=== PATIENT | female | born 1990 | race African-American/Black ===

== ENCOUNTER 2016-10-02 11:23 | Emergency (ER) | payer OTHER | END 2016-10-02 19:49 | disposition home or self-care (01) | LOC: ER 11:23 | DX: N34.2 Other urethritis (principal); Z88.6 Allergy status to analgesic agent ==

== ENCOUNTER 2016-11-06 14:26 | Emergency (ER) | payer OTHER ==
[~2016-11-06] VITALS: Ht 175.3 cm; Wt 98.4 kg
[~2016-11-06 14:26] MED LIST: DOXYCYCLINE 10100 MG PO; NORCO 5-325 TA1 EACH PO; ZOFRAN ODT4 MG PO
[2016-11-06 14:50] LABS: URINE BILIRUBIN NEGATIVE (Negative); URINE BLOOD NEGATIVE (Negative); URINE COLOR YELLOW; URINE GLUCOSE-RANDOM* NEGATIVE (Negative); URINE KETONES NEGATIVE (Negative); URINE NITRITE NEGATIVE (Negative); URINE PROTEIN (DIPSTICK) NEGATIVE (Negative); URINE UROBILINOGEN 0.2 E.U./dl (0.2-1.0)
[2016-11-06 15:08] LABS: CASTS None Seen /LPF (None Seen); CRYSTALS None Seen /LPF (None Seen); SQUAMOUS 4-10 Moderate /LPF (0-3); URINE WBC 6-15 Few /HPF (0-5)
[2016-11-06 15:09] LABS: URINE RBC None Seen /HPF (0-2)
[2016-11-06 15:14] LABS: BACTERIA 1-9 Few /HPF (None Seen)
[2016-11-06] MEDS ORDERED: FLAGYL500 MG PO (15:39)
[2016-11-06 16:17] VITALS: BP 137/76
[2016-11-08 18:07] LABS: CHLAMYDIA TRACHOMATIS-PCR Negative (Negative); NEISSERIA GONORRHEA-PCR Negative (Negative)
== END 2016-11-06 16:18 | disposition home or self-care (01) ==
LOC: ER 14:26
PROVIDERS: Physician Assistant
DX: A59.9 Trichomoniasis, unspecified (principal); R30.0 Dysuria; N89.8 Other specified noninflammatory disorders of vagina; Z88.6 Allergy status to analgesic agent

== ENCOUNTER 2016-12-03 16:16 | Emergency (ER) | payer OTHER ==
[~2016-12-03] VITALS: Ht 175.3 cm; Wt 98.4 kg
--- NOTE | ~2016-12-03 | EKG ---
[address] [address] ELECTROCARDIOGRAM REPORT Name: MAYKATE Room #: DEP VIVIEN Tirado#: [id number] Admission: 12/03/16 Attend Phys: Discharge: 12/03/16 Date of : [birth year] Report #: [id number] THIS REPORT FOR: //name// [facility] ED Test Date: 2016-12-03 Test Time: 16:21:13 Pat Name: KATE OLVERA Department: Room: Gender: F [employer] Attendant: KKODJOVI : 1990 Requested By: Sendy Caballero Order Number: [id number] MD: Austin Boyd Measurements Intervals [place] Rate: 74 P: 59 AL: 162 QRS: 76 QRSD: 94 T: 22 QT: 369 QTc: 410 Interpretive Statements Sinus rhythm Atrial premature complex No previous ECG available for comparison Electronically Signed On 12-04-2016 19:38:33 CDT by Austin Boyd [email or web address] <ELECTRONICALLY SIGNED> By: Austin Boyd MD 12/04/16 [id number] 162 1621 Austin Boyd MD /VICTORIA
[~2016-12-03 16:16] MED LIST changes: +BACTRIM DS TAB1 EACH PO; +FLAGYL500 MG PO; +NOHOMEMEDICATIONS
[2016-12-03 16:52] LABS: ABSOLUTE NEUTROPHILS 5.9 thou/uL (1.4-8.2); BASOPHILS 0.8 % (0.0-2.0); EOSINOPHILS 1.3 % (0.0-3.0); HEMATOCRIT 38.5 % (37.0-47.0); HEMOGLOBIN 12.6 gm/dL (12.0-15.0); LYMPHOCYTES 28.3 % (24.0-44.0); MANUAL DIFF NO; MCH 27.7 pg (26.0-34.0); MCHC 32.7 g/dL (28.0-37.0); MCV 84.9 fL (80.0-100.0); MONOCYTES 8.6 % (1.0-8.0); PLATELET COUNT 285 thou/uL (150-400); RBC 4.54 mil/uL (4.20-5.00); RDW 14.5 % (10.5-14.5); WBC 9.7 thou/uL (4.0-11.0)
[2016-12-03 17:00] LABS: ANION GAP 2 mmol/L (7-16); BUN 16 mg/dL (7-18); CALCIUM 9.1 mg/dL (8.5-10.1); CHLORIDE 103 mmol/L (98-107); CO2 30 mmol/L (21-32); CREATININE 1.1 mg/dL (0.6-1.0); GLUCOSE 101 mg/dL (74-106); SODIUM 135 mmol/L (136-145)
[2016-12-03 17:07] LABS: PROTIME 9.9 Seconds (9.3-11.4)
[2016-12-03 17:09] LABS: ALBUMIN 3.4 g/dL (3.4-5.0); ALKALINE PHOSPHATASE 71 U/L (46-116); SGOT 22 U/L (15-37); SGPT 31 U/L (30-65); TOTAL BILIRUBIN 0.1 mg/dL (<0.1-1.0); TOTAL PROTEIN 7.3 g/dL (6.4-8.2); TROPONIN-I < 0.04 ng/mL (<0.06)
[2016-12-03 17:20] LABS: URINE BILIRUBIN NEGATIVE (Negative); URINE BLOOD NEGATIVE (Negative); URINE COLOR YELLOW; URINE GLUCOSE-RANDOM* NEGATIVE (Negative); URINE KETONES NEGATIVE (Negative); URINE NITRITE NEGATIVE (Negative); URINE PROTEIN (DIPSTICK) NEGATIVE (Negative); URINE SPECIFIC GRAVITY >= 1.030 (1.003-1.035); URINE UROBILINOGEN 0.2 E.U./dl (0.2-1.0)
[2016-12-03] MEDS ORDERED: CYCLOBENZAPRINE5 MG PO (18:42)
[2016-12-03 18:49] VITALS: BP 130/87
[2016-12-05 14:09] LABS: CHLAMYDIA TRACHOMATIS-PCR Negative (Negative); NEISSERIA GONORRHEA-PCR Negative (Negative)
== END 2016-12-03 18:49 | disposition home or self-care (01) ==
LOC: ER 16:16
PROVIDERS: Physician Assistant
DX: R07.89 Other chest pain (principal); D68.59 Other primary thrombophilia; Z20.2 Contact with and (suspected) exposure to infections with a predominantly sexual mode of transmission; Z88.6 Allergy status to analgesic agent

== ENCOUNTER 2017-02-27 14:57 | Emergency (ER) | payer OTHER ==
[~2017-02-27] VITALS: Ht 175.3 cm; Wt 97.1 kg
[~2017-02-27 14:57] MED LIST changes: +CYCLOBENZAPRINE5 MG PO
[2017-02-27 15:11] LABS: URINE BILIRUBIN NEGATIVE (Negative); URINE BLOOD NEGATIVE (Negative); URINE CLARITY SL CLOUDY; URINE COLOR YELLOW; URINE GLUCOSE-RANDOM* NEGATIVE (Negative); URINE KETONES NEGATIVE (Negative); URINE LEUKOCYTES NEGATIVE (Negative); URINE NITRITE NEGATIVE (Negative); URINE PROTEIN (DIPSTICK) NEGATIVE (Negative); URINE SPECIFIC GRAVITY >= 1.030 (1.005-1.035); URINE UROBILINOGEN 0.2 E.U./dl (0.2-1.0)
[2017-05-30] MEDS ORDERED: ONDANSETRON HCL4 M2 PO (20:42)
[2017-05-30] MEDS ORDERED: REGLAN 10 MG TA10 MG PO (20:48)
== END 2017-02-27 15:52 | disposition home or self-care (01) ==
LOC: ER 14:57
PROVIDERS: Emergency Medicine
DX: Z20.2 Contact with and (suspected) exposure to infections with a predominantly sexual mode of transmission (principal); F10.99 Alcohol use, unspecified with unspecified alcohol-induced disorder; Z88.6 Allergy status to analgesic agent

== ENCOUNTER 2017-03-20 17:11 | Emergency (ER) | payer OTHER ==
[~2017-03-20] VITALS: Ht 170.2 cm; Wt 90.7 kg
[2017-05-30] MEDS ORDERED: ONDANSETRON HCL4 M2 PO (20:42)
[2017-05-30] MEDS ORDERED: REGLAN 10 MG TA10 MG PO (20:48)
== END 2017-03-20 18:13 | disposition home or self-care (01) ==
LOC: ER 17:11
DX: J06.9 Acute upper respiratory infection, unspecified (principal); J34.89 Other specified disorders of nose and nasal sinuses; Z88.6 Allergy status to analgesic agent

== ENCOUNTER 2017-08-27 20:15 | Emergency (ER) | payer OTHER ==
[~2017-08-27] VITALS: Ht 182.9 cm; Wt 97.1 kg
[~2017-08-27 20:15] MED LIST changes: +ONDANSETRON HCL4 M2 PO; +REGLAN 10 MG TA10 MG PO
[2017-08-27 20:22] VITALS: BP 121/76
[2017-08-27] MEDS ORDERED: TRAMADOL 50 MG50 MG PO (20:33)
== END 2017-08-27 20:51 | disposition home or self-care (01) ==
LOC: ER 20:15
DX: S09.22XA Traumatic rupture of left ear drum, initial encounter (principal); H91.91 Unspecified hearing loss, right ear; Z88.6 Allergy status to analgesic agent; W21.01XA Struck by football, initial encounter; Y92.89 Other specified places as the place of occurrence of the external cause; Y93.89 Activity, other specified; Y99.8 Other external cause status

== ENCOUNTER 2017-11-15 19:21 | Emergency (ER) | payer OTHER ==
[~2017-11-15] VITALS: Ht 175.3 cm; Wt 99.8 kg
[~2017-11-15 19:21] MED LIST changes: +TRAMADOL 50 MG50 MG PO
[2017-11-15 21:48] VITALS: BP 105/56
== END 2017-11-15 21:50 | disposition home or self-care (01) ==
LOC: ER 19:21
DX: M79.662 Pain in left lower leg (principal); Z88.6 Allergy status to analgesic agent

== ENCOUNTER 2017-12-11 23:12 | Emergency (ER) | payer OTHER ==
[~2017-12-11] VITALS: Ht 175.3 cm; Wt 97.1 kg
--- NOTE | ~2017-12-11 | EKG ---
[address] [address] ELECTROCARDIOGRAM REPORT Name: KATE OLVERA Room #: DEP VIVIEN Tirado#: [id number] Admission: 12/11/17 Attend Phys: Discharge: 12/11/17 Date of : [birth year] Report #: [id number] THIS REPORT FOR: //name// [facility] ED Test Date: 2017-12-11 Test Time: 23:18:34 Pat Name: KATE OLVERA Department: Room: Gender: F [employer] Supervisor: CHAPARRO : 1990 Requested By: Suzi Mckeon Order Number: [id number] MD: Richard Campos Measurements Intervals [place] Rate: 66 P: 74 ID: 149 QRS: 89 QRSD: 105 T: 24 QT: 402 QTc: 422 Interpretive Statements Sinus arrhythmia Rightward axis Compared to ECG 12/03/2016 16:21:13 No significant change was found Electronically Signed On 12-12-2017 7:42:46 A R SPECIALIST by Richard Campos [email or web address] <ELECTRONICALLY SIGNED> By: Richard Campos MD, [facility] 12/12/17 0742 2318 2318 Richard Campos MD, FACC /EPI
[2017-12-11] MEDS ORDERED: XANAX 0.5 MG0.5 M1 PO (23:42)
== END 2017-12-11 23:53 | disposition home or self-care (01) ==
LOC: ER 23:12
DX: F41.0 Panic disorder [episodic paroxysmal anxiety] (principal); Z88.6 Allergy status to analgesic agent

== ENCOUNTER 2018-01-24 12:57 | Emergency (ER) | payer OTHER ==
[~2018-01-24] VITALS: Ht 175.3 cm; Wt 97.1 kg
[~2018-01-24 12:57] MED LIST changes: +XANAX 0.5 MG0.5 M1 PO
[2018-01-24] MEDS ORDERED: NORCO 5-325 TA1 EACH PO (13:44)
[2018-01-24 14:00] VITALS: BP 119/80
== END 2018-01-24 14:00 | disposition home or self-care (01) ==
LOC: ER 12:57
DX: S60.031A Contusion of right middle finger without damage to nail, initial encounter (principal); Z88.6 Allergy status to analgesic agent; W23.0XXA Caught, crushed, jammed, or pinched between moving objects, initial encounter; Y93.89 Activity, other specified; Y92.89 Other specified places as the place of occurrence of the external cause; Y99.8 Other external cause status

== ENCOUNTER 2018-02-14 08:53 | Emergency (ER) | payer OTHER ==
[~2018-02-14] VITALS: Ht 175.3 cm; Wt 102.5 kg
[2018-02-14 09:13] LABS: URINE CLARITY SL HAZY; URINE COLOR YELLOW
[2018-02-14 09:14] LABS: URINE BILIRUBIN NEGATIVE (Negative); URINE BLOOD NEGATIVE (Negative); URINE GLUCOSE-RANDOM* NEGATIVE (Negative); URINE KETONES NEGATIVE (Negative); URINE PROTEIN (DIPSTICK) NEGATIVE (Negative); URINE SPECIFIC GRAVITY 1.025 (1.005-1.035)
[2018-02-14 09:15] LABS: URINE LEUKOCYTES 2+ (Negative); URINE NITRITE NEGATIVE (Negative); URINE UROBILINOGEN 0.2 E.U./dl (0.2-1.0)
[2018-02-14] MEDS ORDERED: FLAGYL500 M1 PO (09:47)
[2018-02-14 09:53] LABS: SQUAMOUS >10 Many /LPF (0-3)
[2018-02-14 09:54] LABS: CASTS None Seen /LPF (None Seen); CRYSTALS None Seen /LPF (None Seen); URINE RBC None Seen /HPF (0-2)
[2018-02-14 10:00] VITALS: BP 133/79
== END 2018-02-14 10:02 | disposition home or self-care (01) ==
LOC: ER 08:53
PROVIDERS: Nurse Practitioner Family
DX: N76.0 Acute vaginitis (principal); A59.00 Urogenital trichomoniasis, unspecified; B96.89 Other specified bacterial agents as the cause of diseases classified elsewhere; Z88.6 Allergy status to analgesic agent

== ENCOUNTER 2018-02-22 17:15 | Emergency (ER) | payer OTHER ==
[~2018-02-22] VITALS: Ht 175.3 cm; Wt 97.1 kg
[~2018-02-22 17:15] MED LIST changes: +FLAGYL500 M1 PO
[2018-02-22 17:59] LABS: ABSOLUTE NEUTROPHILS 5.5 thou/uL (1.4-8.2); BASOPHILS 0.5 % (0.0-2.0); EOSINOPHILS 0.6 % (0.0-3.0); HEMATOCRIT 39.9 % (37.0-47.0); HEMOGLOBIN 13.2 gm/dL (12.0-15.0); MCH 28.3 pg (26.0-34.0); MCV 85.9 fL (80.0-100.0); PLATELET COUNT 294 thou/uL (150-400); POLYS 62.9 % (36.0-66.0); RBC 4.64 mil/uL (4.20-5.00); RDW 14.8 % (10.5-14.5); WBC 8.7 thou/uL (4.0-11.0)
[2018-02-22 18:01] LABS: CALCIUM 8.5 mg/dL (8.5-10.1); CREATININE 1.2 mg/dL (0.6-1.0); POTASSIUM 3.9 mmol/L (3.5-5.1)
[2018-02-22 18:07] LABS: ALBUMIN 3.1 g/dL (3.4-5.0); TOTAL BILIRUBIN 0.2 mg/dL (<0.1-1.0); TOTAL PROTEIN 7.4 g/dL (6.4-8.2)
[2018-02-22] MEDS ORDERED: ZOFRAN4 MG PO (18:22)
[2018-02-22] MEDS ORDERED: PREDNISONE 20 M20 MG PO (18:22)
[2018-02-22 18:27] VITALS: BP 120/72
[2018-02-22 18:46] LABS: URINE BILIRUBIN NEGATIVE (Negative); URINE BLOOD 3+ (Negative); URINE CLARITY SL CLOUDY; URINE COLOR BROWN; URINE GLUCOSE-RANDOM* NEGATIVE (Negative); URINE KETONES TRACE (Negative); URINE LEUKOCYTES TRACE (Negative); URINE NITRITE NEGATIVE (Negative); URINE PROTEIN (DIPSTICK) TRACE (Negative); URINE UROBILINOGEN 0.2 E.U./dl (0.2-1.0)
[2018-02-22 18:49] LABS: AMORPHOUS PHOSPHATES Moderate /LPF (None Seen); BACTERIA None Seen /HPF (None Seen); CASTS None Seen /LPF (None Seen); SQUAMOUS >10 Many /LPF (0-3)
== END 2018-02-22 18:28 | disposition home or self-care (01) ==
LOC: ER 17:15
PROVIDERS: Emergency Medicine
DX: D25.9 Leiomyoma of uterus, unspecified (principal); Z88.6 Allergy status to analgesic agent

== ENCOUNTER 2018-04-16 19:30 | Emergency (ER) | payer OTHER ==
[~2018-04-16] VITALS: Ht 175.3 cm; Wt 92.5 kg
[~2018-04-16 19:30] MED LIST changes: +PREDNISONE 20 M20 MG PO; +ZOFRAN4 MG PO
[2018-04-16 20:04] LABS: URINE BILIRUBIN NEGATIVE (Negative); URINE BLOOD 3+ (Negative); URINE CLARITY CLEAR; URINE COLOR YELLOW; URINE GLUCOSE-RANDOM* NEGATIVE (Negative); URINE KETONES NEGATIVE (Negative); URINE LEUKOCYTES-REFLEX NEGATIVE (Negative); URINE NITRITE-REFLEX NEGATIVE (Negative); URINE PROTEIN (DIPSTICK) NEGATIVE (Negative); URINE SPECIFIC GRAVITY 1.025 (1.005-1.035); URINE UROBILINOGEN 0.2 E.U./dl (0.2-1.0)
[2018-04-16 20:12] LABS: BACTERIA-REFLEX 1-9 Few /HPF (None Seen); CASTS None Seen /LPF (None Seen); CRYSTALS None Seen /LPF (None Seen); SQUAMOUS 0-3 Few /LPF (0-3); URINE RBC >20 Many /HPF (0-2); URINE WBC-REFLEX None Seen /HPF (0-5)
[2018-04-16] MEDS ORDERED: FLAGYL500 M1 PO (20:57)
[2018-04-16 21:08] VITALS: BP 131/87
== END 2018-04-16 21:08 | disposition home or self-care (01) ==
LOC: ER 19:30
PROVIDERS: Physician Assistant
DX: Z20.2 Contact with and (suspected) exposure to infections with a predominantly sexual mode of transmission (principal); Z88.6 Allergy status to analgesic agent

== ENCOUNTER 2018-05-16 19:10 | Emergency (ER) | payer OTHER ==
[~2018-05-16] VITALS: Ht 175.3 cm; Wt 93.0 kg
[2018-05-16 21:13] VITALS: BP 119/72
== END 2018-05-16 21:14 | disposition home or self-care (01) ==
LOC: ER 19:10
DX: R51 Headache (principal); Z88.6 Allergy status to analgesic agent

== ENCOUNTER 2018-07-18 19:17 | Emergency (ER) | payer OTHER ==
[~2018-07-18] VITALS: Ht 172.7 cm; Wt 97.1 kg
[2018-07-18 19:52] LABS: URINE BILIRUBIN NEGATIVE (Negative); URINE BLOOD NEGATIVE (Negative); URINE CLARITY CLEAR; URINE COLOR YELLOW; URINE GLUCOSE-RANDOM* NEGATIVE (Negative); URINE KETONES NEGATIVE (Negative); URINE LEUKOCYTES-REFLEX NEGATIVE (Negative); URINE NITRITE-REFLEX NEGATIVE (Negative); URINE PROTEIN (DIPSTICK) NEGATIVE (Negative); URINE SPECIFIC GRAVITY 1.025 (1.005-1.035)
[2018-07-18] MEDS ORDERED: FLAGYL500 M1 PO (21:44)
[2018-07-18 21:56] VITALS: BP 121/76
== END 2018-07-18 21:56 | disposition home or self-care (01) ==
LOC: ER 19:17
PROVIDERS: Emergency Medicine
DX: N76.0 Acute vaginitis (principal); B96.89 Other specified bacterial agents as the cause of diseases classified elsewhere; Z88.6 Allergy status to analgesic agent

== ENCOUNTER 2018-09-02 11:17 | Emergency (ER) | payer OTHER ==
[~2018-09-02] VITALS: Ht 175.3 cm; Wt 81.7 kg
[2018-09-02 11:20] VITALS: BP 122/83
[2018-09-02] MEDS ORDERED: VITAFOL-OB+DHA1 EACH PO (11:58)
== END 2018-09-02 12:46 | disposition home or self-care (01) ==
LOC: ER 11:17
DX: Z32.01 Encounter for pregnancy test, result positive (principal); Z88.6 Allergy status to analgesic agent

== ENCOUNTER 2018-09-05 19:10 | Emergency (ER) | payer OTHER ==
[~2018-09-05] VITALS: Ht 175.3 cm; Wt 89.8 kg
[~2018-09-05 19:10] MED LIST changes: +VITAFOL-OB+DHA1 EACH PO
[2018-09-05 19:39] LABS: URINE BLOOD NEGATIVE (Negative); URINE CLARITY CLEAR; URINE COLOR YELLOW; URINE GLUCOSE-RANDOM* NEGATIVE (Negative); URINE KETONES 3+ (Negative); URINE LEUKOCYTES-REFLEX NEGATIVE (Negative); URINE NITRITE-REFLEX NEGATIVE (Negative); URINE PROTEIN (DIPSTICK) 1+ (Negative); URINE SPECIFIC GRAVITY >= 1.030 (1.005-1.035); URINE UROBILINOGEN 0.2 E.U./dl (0.2-1.0)
[2018-09-05 19:46] LABS: ICTOTEST (BILI CONFIRMATORY) Negative (Negative); URINE BILIRUBIN NEGATIVE (Negative); URINE REDUCING SUBSTANCE NEGATIVE
[2018-09-05 19:54] LABS: BACTERIA-REFLEX 1-9 Few /HPF (None Seen); CASTS None Seen /LPF (None Seen); CRYSTALS None Seen /LPF (None Seen); SQUAMOUS 4-10 Moderate /LPF (0-3); URINE RBC None Seen /HPF (0-2); URINE WBC-REFLEX 0-5 Rare /HPF (0-5)
== END 2018-09-05 20:40 | disposition left against medical advice (07) ==
LOC: ER 19:10
PROVIDERS: Physician Assistant
DX: R10.30 Lower abdominal pain, unspecified (principal); Z32.01 Encounter for pregnancy test, result positive; R11.2 Nausea with vomiting, unspecified; Z88.6 Allergy status to analgesic agent; Z79.899 Other long term (current) drug therapy

== ENCOUNTER 2018-09-25 09:22 | Emergency (ER) | payer OTHER ==
[~2018-09-25] VITALS: Ht 172.7 cm; Wt 97.5 kg
[2018-09-25 09:48] LABS: URINE BILIRUBIN NEGATIVE (Negative); URINE BLOOD NEGATIVE (Negative); URINE CLARITY CLEAR; URINE COLOR YELLOW; URINE GLUCOSE-RANDOM* NEGATIVE (Negative); URINE KETONES NEGATIVE (Negative); URINE LEUKOCYTES-REFLEX NEGATIVE (Negative); URINE NITRITE-REFLEX NEGATIVE (Negative); URINE PROTEIN (DIPSTICK) NEGATIVE (Negative); URINE UROBILINOGEN 0.2 E.U./dl (0.2-1.0)
[2018-09-25 09:59] LABS: HEMATOCRIT 39.9 % (37.0-47.0); HEMOGLOBIN 13.3 gm/dL (12.0-15.0); MCHC 33.5 g/dL (28.0-37.0); MCV 86.5 fL (80.0-100.0); RBC 4.61 mil/uL (4.20-5.00); RDW 14.3 % (10.5-14.5); WBC 9.4 thou/uL (4.0-11.0)
[2018-09-25 10:05] LABS: CALCIUM 9.1 mg/dL (8.5-10.1); CREATININE 0.9 mg/dL (0.6-1.0); POTASSIUM 3.8 mmol/L (3.5-5.1)
[2018-09-25] MEDS ORDERED: FLAGYL500 M1 PO (11:40)
[2018-09-25 11:41] VITALS: BP 141/76
== END 2018-09-25 11:41 | disposition home or self-care (01) ==
LOC: ER 09:22
PROVIDERS: Emergency Medicine
DX: O20.0 Threatened abortion (principal); O23.31 Infections of other parts of urinary tract in pregnancy, first trimester; A59.01 Trichomonal vulvovaginitis; Z3A.08 8 weeks gestation of pregnancy; Z79.899 Other long term (current) drug therapy; Z88.6 Allergy status to analgesic agent

== ENCOUNTER 2019-05-30 13:04 | Emergency (ER) | payer OTHER ==
[~2019-05-30] VITALS: Ht 175.3 cm; Wt 102.1 kg
[2019-05-30 13:41] LABS: ABSOLUTE NEUTROPHILS 7.2 thou/uL (1.4-8.2); BASOPHILS 0.4 % (0.0-2.0); EOSINOPHILS 0.4 % (0.0-3.0); HEMATOCRIT 37.8 % (37.0-47.0); HEMOGLOBIN 12.4 gm/dL (12.0-15.0); LYMPHOCYTES 19.9 % (24.0-44.0); MCH 28.1 pg (26.0-34.0); MCHC 32.9 g/dL (28.0-37.0); MCV 85.3 fL (80.0-100.0); MONOCYTES 9.5 % (1.0-8.0); PLATELET COUNT 294 thou/uL (150-400); POLYS 69.8 % (36.0-66.0); RBC 4.43 mil/uL (4.20-5.00); RDW 15.6 % (10.5-14.5); WBC 10.4 thou/uL (4.0-11.0)
[2019-05-30 14:00] LABS: ALBUMIN 3.4 g/dL (3.4-5.0); CALCIUM 8.7 mg/dL (8.5-10.1); CREATININE 0.9 mg/dL (0.6-1.0); POTASSIUM 3.7 mmol/L (3.5-5.1); TOTAL BILIRUBIN 0.3 mg/dL (<0.1-1.0); TOTAL PROTEIN 8.1 g/dL (6.4-8.2)
[2019-05-30] MEDS ORDERED: DICLEGIS DR 101 EACH PO (14:22)
[2019-05-30] MEDS ORDERED: PHENERGAN 25 MG25 M1 PO (14:22)
[2019-05-30 14:24] VITALS: BP 112/76
== END 2019-05-30 14:24 | disposition home or self-care (01) ==
LOC: ER 13:04
PROVIDERS: Emergency Medicine
DX: O21.0 Mild hyperemesis gravidarum (principal); Z3A.08 8 weeks gestation of pregnancy; Z88.6 Allergy status to analgesic agent

== ENCOUNTER 2020-06-11 07:18 | Emergency (ER) | payer OTHER ==
[~2020-06-11] VITALS: Ht 170.2 cm; Wt 102.1 kg
[~2020-06-11 07:18] MED LIST changes: +DICLEGIS DR 101 EACH PO; +PHENERGAN 25 MG25 M1 PO
[2020-06-11] MEDS ORDERED: SLOW FE142 MG PO (07:30)
[2020-06-11 07:46] LABS: URINE BILIRUBIN NEGATIVE (Negative); URINE BLOOD NEGATIVE (Negative); URINE CLARITY CLEAR; URINE COLOR YELLOW; URINE GLUCOSE-RANDOM* NEGATIVE (Negative); URINE KETONES TRACE (Negative); URINE LEUKOCYTES-REFLEX NEGATIVE (Negative); URINE NITRITE-REFLEX NEGATIVE (Negative); URINE PROTEIN (DIPSTICK) NEGATIVE (Negative); URINE SPECIFIC GRAVITY 1.025 (1.005-1.035); URINE UROBILINOGEN 0.2 E.U./dl (0.2-1.0)
[2020-06-11 08:04] LABS: CALCIUM 8.8 mg/dL (8.5-10.1); CREATININE 0.9 mg/dL (0.6-1.0); HEMATOCRIT 33.8 % (37.0-47.0); HEMOGLOBIN 11.2 gm/dL (12.0-15.0); MCHC 33.2 g/dL (28.0-37.0); MCV 78.4 fL (80.0-100.0); RBC 4.31 mil/uL (4.20-5.00); RDW 17.9 % (10.5-14.5); WBC 6.5 thou/uL (4.0-11.0)
[2020-06-11 08:08] LABS: POTASSIUM 4.2 mmol/L (3.5-5.1)
[2020-06-11 08:10] LABS: ALBUMIN 3.1 g/dL (3.4-5.0); TOTAL BILIRUBIN 0.3 mg/dL (0.2-1.0); TOTAL PROTEIN 7.6 g/dL (6.4-8.2)
[2020-06-11 10:08] VITALS: BP 99/75
== END 2020-06-11 10:08 | disposition home or self-care (01) ==
LOC: ER 07:18
PROVIDERS: Student in an Organized Health Care Education/Training Program
DX: R10.84 Generalized abdominal pain (principal); R74.01 Elevation of levels of liver transaminase levels; Z88.6 Allergy status to analgesic agent; Z79.899 Other long term (current) drug therapy

== ENCOUNTER 2021-03-14 07:23 | Emergency (ER) | payer OTHER ==
[~2021-03-14] VITALS: Ht 172.7 cm; Wt 109.8 kg
[~2021-03-14 07:23] MED LIST changes: +SLOW FE142 MG PO
[2021-03-14 07:48] LABS: URINE BILIRUBIN NEGATIVE (Negative); URINE BLOOD NEGATIVE (Negative); URINE CLARITY SL CLOUDY; URINE COLOR YELLOW; URINE GLUCOSE-RANDOM* NEGATIVE (Negative); URINE KETONES NEGATIVE (Negative); URINE LEUKOCYTES-REFLEX NEGATIVE (Negative); URINE NITRITE-REFLEX NEGATIVE (Negative); URINE PROTEIN (DIPSTICK) NEGATIVE (Negative); URINE SPECIFIC GRAVITY >= 1.030 (1.005-1.035); URINE UROBILINOGEN 0.2 E.U./dl (0.2-1.0)
[2021-03-14] MEDS ORDERED: METRONIDAZOLE500 M4 PO (08:55)
[2021-03-14 09:02] VITALS: BP 128/80
== END 2021-03-14 08:59 | disposition home or self-care (01) ==
LOC: ER 07:23
PROVIDERS: Emergency Medicine
DX: N76.0 Acute vaginitis (principal)